=== PATIENT | male | born 1975 | race Asian ===

== ENCOUNTER 2018-06-01 23:57 | Emergency (ER) | payer BC, OTHER ==
[~2018-06-01] VITALS: Ht 152.4 cm; Wt 66.8 kg
[2018-06-02 01:57] VITALS: BP 122/80
[2018-06-02] MEDS ORDERED: methylPREDNISolone SOD SUCC 125 MG/2 ML VL IM ONE (02:15)
[2018-06-02] MEDS ORDERED: diphenhdrAMINE HCL 50 MG/1 ML VL IM ONE (02:15)
== END 2018-06-02 02:37 | disposition home or self-care (01) ==
LOC: ER 06-02 00:02
DX: L25.9 Unspecified contact dermatitis, unspecified cause (principal)
CPT/HCPCS: 96372; 99283; J1200; J2930

== ENCOUNTER 2018-06-12 13:08 | Emergency (ER) | payer OTHER ==
[~2018-06-12] VITALS: Ht 152.4 cm; Wt 52.2 kg
[2018-06-12 13:45] VITALS: BP 105/78
[2018-06-12] MEDS ORDERED: diphenhdrAMINE HCL 50 MG/1 ML VL IM ONE (14:00)
[2018-06-12] MEDS ORDERED: EPINEPHrine HCL 1 MG/1 ML AMP SC ONE (14:00)
== END 2018-06-12 14:33 | disposition home or self-care (01) ==
LOC: EDUNIT# 13:08 → ER 13:08
DX: T78.40XA Allergy, unspecified, initial encounter (principal); J45.909 Unspecified asthma, uncomplicated; F17.210 Nicotine dependence, cigarettes, uncomplicated; X58.XXXA Exposure to other specified factors, initial encounter
CPT/HCPCS: 96372; 99283; J0171; J1200

== ENCOUNTER 2018-06-23 16:56 | Emergency (ER) | payer OTHER ==
[~2018-06-23] VITALS: Ht 152.4 cm; Wt 68.0 kg
[2018-06-23 17:05] VITALS: BP 126/89
[2018-06-23] MEDS ORDERED: EPINEPHrine HCL 1 MG/1 ML AMP SC ONE (17:45)
[2018-06-23] MEDS ORDERED: diphenhdrAMINE HCL 50 MG/1 ML VL IM ONE (17:45)
== END 2018-06-23 18:32 | disposition home or self-care (01) ==
LOC: ER 16:56
DX: T78.40XA Allergy, unspecified, initial encounter (principal); L50.0 Allergic urticaria; F41.9 Anxiety disorder, unspecified; F17.210 Nicotine dependence, cigarettes, uncomplicated; X58.XXXA Exposure to other specified factors, initial encounter
CPT/HCPCS: 96372; 99283; J0171; J1200